=== PATIENT | female | born 1975 | race Caucasian/White ===

== ENCOUNTER 2018-06-24 13:34 | Emergency (ER) | payer SELFPAY ==
[~2018-06-24 13:34] MED LIST: ISOVUE-370 76%-LOCM 1 ML ONE
[2018-06-24 14:14] LABS: #Eosinphils 0.1 thou/uL (0.0-0.7); #Lymphocytes 1.1 thou/uL (1.20-3.40); #Monocytes 0.4 thou/uL (0.11-0.59); #Neutrophils 3.6 thou/uL (1.40-6.50); %Basophils 0.6 % (0.0-1.0); %Eosinophils 2.5 % (0.0-10.0); %Lymphocytes 20.3 % (21.0-51.0); %Monocytes 6.8 % (0.0-10.0); %Neutrophils 69.8 % (42.0-75.0); Hemoglobin 13.3 g/dL (12.0-16.0); Mean Corpuscular HGB CONC 34.3 g/dL (32.0-36.0); Mean Corpuscular Volume 84.6 fL (78.0-98.0); Mean Platelet Volume 6.5 fL (7.4-10.4); Platelet Count 162 thou/uL (130-400); RBC Distribution Width 11.8 % (11.5-14.5); Red Blood Cell (RBC) Count 4.57 mill/uL (4.20-5.40); White Blood Cell (WBC) Count 5.2 thou/uL (4.8-10.8)
[2018-06-24 14:31] LABS: BHCG - Serum Negative (NEGATIVE); Pregs Control Background? CLEAR/WHITE (CLR/WHITE); Pregs Control Bar Appear? YES (CONTROL BAR)
[2018-06-24 14:35] LABS: ALT (SGPT) 16 U/L (8-55); AST (SGOT) 17 U/L (5-34); Albumin 4.7 g/dL (3.5-5.0); Alkaline Phosphatase 59 U/L (40-150); Anion Gap 12 mmol/L (10-20); BUN (Urea Nitrogen) 10 mg/dL (7.0-18.7); Bilirubin, Total 0.4 mg/dL (0.2-1.2); Calc. Creatinine Clearance 0 mL/min (70-130); Calcium 9.4 mg/dL (7.8-10.44); Carbon Dioxide 25 mmol/L (22-29); Chloride 105 mmol/L (98-107); Estimated GFR-MDRD 76; Globulin 2.8 g/dL (2.4-3.5); Glucose 102 mg/dL (70-105); Lipase 19 U/L (8-78); Potassium 3.7 mmol/L (3.5-5.1); Protein, Total 7.5 g/dL (6.0-8.3); Sodium 138 mmol/L (136-145)
[2018-06-24 14:42] LABS: Bilirubin Negative (Negative); Blood, Urine Large (Negative); Clarity CLEAR (Clear); Glucose, Urine (Dipstick) Negative (Negative); Leukocyte Negative (Negative); Nitrite Negative (Negative); Protein, Urine (Dipstick) Negative (Neg-Trace); Specific Gravity, Urine 1.008 (1.002-1.036); Urobilinogen 0.2 mg/dL (0.2-1.0); pH, Urine 6.5 (5.0-9.0)
[2018-06-24 14:43] LABS: Bacteria/HPF None Seen HPF (None Seen); Hyaline Casts/LPF 0-3 HYALINE CAST LPF (0-3 Hyaline); Pathc Cast-AUWi Flag 0.27 (0-2.49); Squamous Epithelial 0-3 HPF (0-3); WBC/HPF None Seen HPF (0-3)
--- NOTE | 2018-06-24 16:33 | ULT ---
[facility] COMPARISON: None HISTORY: Pelvic pain TECHNIQUE: Multiplanar grayscale sonographic imaging of the pelvis obtained with transabdominal and e ndovaginal imaging. The ovaries are assessed with color flow and spectral analysis FINDINGS: Uterus measures 7.9 x 4.3 x 6.0 cm. Endometrial stripe measures 7 mm, within normal limits. No free fluid noted in the pelvis. Incidental note made of subcentimeter nabothian cyst. Right ovary measures 3.3 x 2.2 x 2.2 cm and left ovary measures 4.3 x 2.8 x 3.1 cm. Normal blood flow documented within the ovaries. Right ovarian cyst noted measuring 2.7 x 2.4 x 2.1 cm. Left ovarian cyst noted measuring 3.2 x 2.8 x 3.1 cm. IMPRESSION: Bilateral ovarian cysts as detailed above.
--- NOTE | 2018-06-24 16:46 | CT ---
CT ABDOMEN AND PELVIS: 06/24/18 HISTORY: Lower abdominal pain. COMPARISON: None. FINDINGS: Lung bases are clear. No pericardial effusion. The aortoiliac contour is nonaneurysmal. Bilateral adrenal hypodensities are present. Spleen, liver, and gallbladder are unremarkable. The appendix is visualized and is normal. Adrenal glands are normal. No dilated loops of large or small bowel. No retroperitoneal adenopathy. Normal bilateral renal enhancement without perinephric stranding. Punctate right cortical interpolar renal cyst. IMPRESSION: Normal exam. No acute inflammatory process. Normal appendix. POS: C
== END 2018-06-24 17:21 | disposition home or self-care (01) ==
LOC: ERS 13:34
DX: R10.32 Left lower quadrant pain (principal); E03.9 Hypothyroidism, unspecified; Z79.899 Other long term (current) drug therapy
CPT/HCPCS: 74177; 76856; 80053; 81003; 81015; 83690; 84703; 85025; 86900; 86901; Q9966